=== PATIENT | male | born 1945 | race Caucasian/White ===

== ENCOUNTER 2018-05-12 16:17 | Emergency (ER) | payer MEDICARE, OTHER ==
[2018-05-12 16:50] VITALS: BP 115/76
[2018-05-12] MEDS ORDERED: Albuterol/Ipratropium NEB.SOL* Albuterol 2.5 MG/Ipratropium 0.5 MG 3 ML INH ONE (17:04)
--- NOTE | 2018-05-12 17:04 | UC ---
Respiratory Complaint HPI - HPI Summary HPI Summary: Patient urgent care today with 3 weeks of cough nasal drip congestion wheezing. No fevers chills night sweats nausea vomiting. Patient seen primary care doctor given a course of Zithromax without relief. Patient reports significant amount of nasal discharge and postnasal drip. Patient is in fact not using Flonase nasal spray now and is only using when necessary Actifed for nasal congestion symptoms. And patient is only using his inhaler 1 time a day in the morning - History of Current Complaint Chief Complaint: UCRespiratory Stated Complaint: COUGH x3 WKS Time Seen by Provider: 05/12/18 16:39 Hx Obtained From: Patient Onset/Duration: Gradual Onset, Lasting Weeks - 3, Still Present Timing: Constant Pain Intensity: 0 Character: Cough: Productive Aggravating Factors: Allergens, Exertion, Recumbent Position Alleviating Factors: Bronchodilator Associated Signs And Symptoms: Positive: Pleuritic Chest Pain, URI, Nasal Congestion - Allergies/Home Medications Allergies/Adverse Reactions: Allergies Allergy/AdvReac Type Severity Reaction Status Date / Time bee venom protein (honey bee) Allergy Anaphylatic Verified 05/12/18 16:48 Shock Penicillins Allergy Hives Verified 05/12/18 16:48 Home Medications: Home Medications Turmeric 3 tab PO DAILY 05/12/18 [History Confirmed 05/12/18] PMH/Surg Hx/FS Hx/Imm Hx Previously Healthy: No Endocrine History: Dyslipidemia Cardiovascular History: Hypertension Respiratory History: Asthma GI/ History: Gastroesophageal Reflux - Surgical History Surgical History: Yes Surgery Procedure, Year, and Place: radical prostatectomy; inguinal 12/2015. [facility] - Family History Known Family History: Positive: Hypertension Negative: Cardiac Disease, Diabetes Family History: htn. afib - Social History Occupation: Retired Lives: With Family Alcohol Use: Rare Substance Use Type: None Smoking Status (MU): Former Smoker When Did the Patient Quit Smoking/Using Tobacco: 2012 - Immunization History Most Recent Tetanus Shot: unsure Review of Systems Constitutional: Negative Skin: Negative Eyes: Negative ENT: Nasal Discharge Respiratory: Cough Cardiovascular: Negative Gastrointestinal: Negative Genitourinary: Negative Motor: Negative Neurovascular: Negative Musculoskeletal: Negative Neurological: Negative Psychological: Negative Is Patient Immunocompromised?: No All Other Systems Reviewed And Are Negative: Yes Physical Exam Triage Information Reviewed: Yes Appearance: No Pain Distress, Well-Nourished, Ill-Appearing Vital Signs: Initial Vital Signs Temp 99.0 F 05/12/18 16:39 Pulse 95 05/12/18 16:39 Resp 16 05/12/18 16:39 BP 115/76 05/12/18 16:39 Pulse Ox 98 05/12/18 16:39 Vital Signs Reviewed: Yes Eye Exam: Normal Eyes: Positive: Conjunctiva Clear ENT Exam: Normal ENT: Positive: Normal ENT inspection, Hearing grossly normal, Pharynx normal, Nasal congestion, Nasal drainage, TMs normal. Negative: Tonsillar swelling, Tonsillar exudate, Trismus, Muffled voice, Hoarse voice, Dental tenderness, Sinus tenderness, Uvula midline Dental Exam: Normal Neck exam: Normal Neck: Positive: Supple, Nontender, No Lymphadenopathy Respiratory Exam: Normal Respiratory: Positive: Chest non-tender, No respiratory distress, No accessory muscle use, Wheezing Cardiovascular Exam: Normal Cardiovascular: Positive: RRR, No Murmur, Pulses Normal, Brisk Capillary Refill Musculoskeletal Exam: Normal Musculoskeletal: Positive: Strength Intact, ROM Intact, No Edema Neurological Exam: Normal Neurological: Positive: Alert, Muscle Tone Normal Psychological Exam: Normal Skin Exam: Normal UC Diagnostic Evaluation - Laboratory O2 Sat by Pulse Oximetry: 98 Re-Evaluation - Re-Evaluation First Eval Change: Improved - Patient feels much better after nebulizer treatment. Patient reports increased air movement less chest tightness and did cough up some sputum. Respiratory Course/Dx - Course Course Of Treatment: Spacer provided for patient's inhaler at educated patient on use. Patient will restart his Flonase. Patient will use Claritin one by mouth daily when necessary for allergy symptoms. Patient will restart his coolmist humidifier in his bedroom. And will follow up with primary care if symptoms do not resolve - Differential Dx/Diagnosis Provider Diagnoses: Allergic rhinitis, bronchospastic cough Discharge - Sign-Out/Discharge Documenting (check all that apply): Discharge/Admit/Transfer - Discharge Plan Condition: Stable Disposition: HOME Prescriptions: EPINEPHrine [Epipen 2-Srinivas] 0.3 mg IM SEE INSTRUCTIONS #1 inj Fluticasone NASAL SPRAY 50MCG* [Flonase NASAL SPRAY 50MCG*] 2 spray BOTH NARES DAILY #1 btl Patient Education Materials: Loratadine (By mouth), Allergic Rhinitis (ED), Bronchospasm (ED), How to Use a Metered-Dose Inhaler and a Spacer (ED) Referrals: Geovanni Guerrero MD [Primary Care Provider] - If Needed - Billing Disposition and Condition Condition: STABLE Disposition: Home
== END 2018-05-12 17:45 | disposition home or self-care (01) ==
LOC: UCCORT 16:17
DX: J30.9 Allergic rhinitis, unspecified (principal); R05 Cough; Z88.0 Allergy status to penicillin; Z91.030 Bee allergy status; I10 Essential (primary) hypertension; Z87.891 Personal history of nicotine dependence
CPT/HCPCS: 99212; A9270-GY; G0463

== ENCOUNTER 2018-06-15 15:29 | Emergency (ER) | payer MEDICARE, OTHER ==
[2018-06-15 15:57] VITALS: BP 144/90
[2018-06-15] MEDS ORDERED: Albuterol/Ipratropium NEB.SOL* Albuterol 2.5 MG/Ipratropium 0.5 MG 3 ML INH ONE (16:06)
[2018-06-15] MEDS ORDERED: predniSONE TAB* 20 MG PO ONE (16:07)
--- NOTE | 2018-06-15 16:16 | ED ---
Respiratory - HPI Summary HPI Summary: 72 yr old male with the complaint of coughing productive of sputum for a couple of months, and intermittent wheezing and SOB. He was on zithromax last month with no improvement. He has not smoked cigarettes in 7 years. No other complaints. - History of Current Complaint Chief Complaint: UCRespiratory Stated Complaint: LUNG COMPLAINT,COUGH (1 MONTH) Time Seen by Provider: 06/15/18 15:58 Pain Intensity: 0 - Allergy/Home Medications Allergies/Adverse Reactions: Allergies Allergy/AdvReac Type Severity Reaction Status Date / Time bee venom protein (honey bee) Allergy Anaphylatic Verified 06/15/18 15:47 Shock Penicillins Allergy Anaphylatic Verified 06/15/18 15:47 Shock Home Medications: Home Medications EPINEPHrine [Epipen 2-Srinivas] 0.3 mg IM SEE INSTRUCTIONS PRN 06/15/18 [History Confirmed 06/15/18] Ibuprofen TAB* [Advil TAB*] 400 mg PO Q6H PRN 06/15/18 [History Confirmed ] Irbesartan 300 mg PO DAILY 06/15/18 [History Confirmed 06/15/18] Omeprazole CAP* [Prilosec CAP* 20 MG] 20 mg PO DAILY 06/15/18 [History Confirmed 06/15/18] Pseudoephedrine/Triprolid(NF) [Actifed(NF)] 1 tab PO ONCE PRN 06/15/18 [History Confirmed 06/15/18] PMH/Surg Hx/FS Hx/Imm Hx Endocrine/Hematology History: Denies: Hx Diabetes Cardiovascular History: Reports: Hx Hypertension Respiratory History: Reports: Hx Pneumonia, Hx Pulmonary Embolism - Cancer History Cancer Type, Location and Year: prostate. bladder - Surgical History Surgery Procedure, Year, and Place: radical prostatectomy; inguinal 12/2015. [facility] Infectious Disease History: No Infectious Disease History: Denies: Traveled Outside the [place] in Last 30 Days - Family History Known Family History: Positive: Hypertension Negative: Cardiac Disease, Diabetes Family History: htn. afib - Social History Alcohol Use: Occasionally Substance Use Type: Reports: None Smoking Status (MU): Former Smoker Review of Systems Constitutional: Negative Positive: Shortness Of Breath, Cough All Other Systems Reviewed And Are Negative: Yes Physical Exam Triage Information Reviewed: Yes Vital Signs On Initial Exam: Initial Vitals Temp Pulse Resp BP Pulse Ox 99.3 F 95 26 144/90 93 07/26/18 15:50 06/15/18 15:50 06/15/18 15:50 06/15/18 15:50 06/15/18 15:50 Vital Signs Reviewed: Yes Appearance: Positive: Well-Appearing, No Pain Distress Skin: Positive: Warm, Skin Color Reflects Adequate Perfusion Head/Face: Positive: Normal Head/Face Inspection Eyes: Positive: EOMI ENT: Positive: Normal ENT inspection, Pharynx normal, TMs normal Neck: Positive: Supple, Nontender Respiratory/Lung Sounds: Positive: Decreased Breath Sounds Cardiovascular: Positive: RRR. Negative: Murmur Abdomen Description: Positive: Nontender Musculoskeletal: Positive: Strength/ROM Intact. Negative: Edema Left, Edema Right Neurological: Positive: Sensory/Motor Intact, Alert, Oriented to Person Place, Time, CN Intact II-III Psychiatric: Positive: Normal - [place] Coma Scale Best Eye Response: 4 - Spontaneous Best Motor Response: 6 - Obeys Commands Best Verbal Response: 5 - Oriented Coma Scale Total: 15 Diagnostics - Vital Signs Vital Signs Temp Pulse Resp BP Pulse Ox 06/15/18 15:50 99.3 F 95 26 144/90 93 - Laboratory Lab Statement: Any lab studies that have been ordered have been reviewed, and results considered in the medical decision making process. - Radiology chest xray pa/lat Xray Interpretation: Positive (See Comments) - COPD Radiology Interpretation Completed By: Radiologist Re-Evaluation - Re-Evaluation First Eval Re-Evaluation Time: 17:19 Change: Improved Comment: On reeval his lungs are clear with good air movement after the nebulizer. Disposition - Course Course Of Treatment: 72 yr old male with the complaint of coughing. His chest xray is COPD. Better after neb. Will put on steroids, and refill his ventolin and he will follow up with his PMD. - Diagnoses Provider Diagnoses: COPD exacerbation, Hypertension Discharge - Sign-Out/Discharge Documenting (check all that apply): Patient Departure - Discharge Plan Condition: Good Disposition: HOME Prescriptions: Albuterol HFA INHALER* [Ventolin HFA Inhaler*] 1 - 2 puff INH Q4H PRN #1 mdi PRN Reason: Cough predniSONE TAB* [Deltasone 20 MG TAB*] 40 mg PO DAILY #8 tab Patient Education Materials: COPD (Chronic Obstructive Pulmonary Disease) (ED) , Hypertension (ED) Referrals: Geovanni Guerrero MD [Primary Care Provider] - 1 Day - Billing Disposition and Condition Condition: GOOD Disposition: Home
--- NOTE | 2018-06-15 16:41 | RAD ---
INDICATION: Cough. COMPARISON: Comparison is made with a prior study from August 11, 2016. TECHNIQUE: Dual-energy PA and lateral views of the chest were obtained. FINDINGS: The heart is within normal limits in size. Mediastinal and hilar contours appear within normal limits. The lungs are hyperinflated and clear. No pleural effusion is seen. IMPRESSION: FINDINGS SUGGESTIVE OF COPD, NO EVIDENCE FOR ACUTE FINDING.
== END 2018-06-15 17:31 | disposition home or self-care (01) ==
LOC: UCCORT 15:29
DX: J44.1 Chronic obstructive pulmonary disease with (acute) exacerbation (principal); I10 Essential (primary) hypertension; Z88.0 Allergy status to penicillin; Z91.030 Bee allergy status; Z87.891 Personal history of nicotine dependence
CPT/HCPCS: 71046; 99212; A9270-GY; G0463; J7512